=== PATIENT | female | born 1980 ===

== ENCOUNTER 2017-08-25 07:34 | Day surgery (SDC) | payer OTHER ==
[2017-08-25] MEDS ORDERED: Lactated Ringer's 500 ML IV ONE (07:48)
[2017-08-25 08:14] VITALS: TEMP 97; O2SAT 100
[2017-08-25] MEDS ORDERED: Propofol 10 mg/ml Inj (20 ML) ONE (08:14)
[2017-08-25] MEDS ORDERED: Midazolam 2 MG/2 ML VIAL ONE (08:14)
[2017-08-25 08:32] VITALS: RESP 20
[2017-08-25 08:44] VITALS: BP 99/55; PULSE 79
== END 2017-08-25 10:00 | disposition home or self-care (01) ==
LOC: H.ENDO 07:34
PROVIDERS: ATTEND Internal Medicine Gastroenterology
DX: R12 Heartburn (principal); F41.9 Anxiety disorder, unspecified; K29.70 Gastritis, unspecified, without bleeding; K44.9 Diaphragmatic hernia without obstruction or gangrene; R19.7 Diarrhea, unspecified
CPT/HCPCS: 43239; 88305; J2001; J2250; J2704; J7120